=== PATIENT | male | born 1960 | race American Indian/Alaskan Native ===

== ENCOUNTER 2017-08-05 19:19 | Emergency (ER) | payer OTHER ==
[2017-08-05 19:41] VITALS: BP 126/87
[2017-08-05] MEDS ORDERED: TRIPLE ANTIBIOTIC TP ONE (20:57)
[2017-08-05] MEDS ORDERED: BOOSTRIX IM ONE (20:58)
--- NOTE | 2017-08-05 21:24 | Emergency Department Report ---
- General Chief Complaint: Wound/Laceration Stated Complaint: FALL/LEFT FACE LACERATION Time Seen by Provider: 08/05/17 20:35 Source: patient Mode of arrival: Ambulatory Limitations: No Limitations - History of Present Illness Initial Comments: 56-year-old male past medical history traumatic brain injury, arthritis, cholesterol, hypertension presents with complaint of laceration to left anterior forehead status post slip and fall in tub this evening. Patient states he slipped while coming out of shower hit his head on edge of tub and may have briefly lost consciousness. was present and states that she heard him fall and assisted him getting back up. As per patient's he was drinking alcohol this evening. Patient unaware of tetanus status. Visible one- inch laceration to left upper anterior forehead above left eye. Patient is awake alert and oriented cooperative and fully lucid. 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 Is ambulatory without assistance. -: This evening Location: scalp Place: home Patient Tetanus UTD: No Context: accidental Associated Symptoms: pain - Related Data Previous Rx's Medication Instructions Recorded Last Taken Type Acetaminophen [Acetaminophen TAB] 500 mg PO Q6HR PRN #30 tablet 08/05/17 Unknown Rx Bacitracin Zinc Oint [Antibiotic 1 applicatio TP TID #1 tube 08/05/17 Unknown Rx Oint] Allergies Allergy/AdvReac Type Severity Reaction Status Date / Time No Known Allergies Allergy Unverified 08/05/17 19:41 ED Review of Systems ROS: Stated complaint: FALL/LEFT FACE LACERATION Other details as noted in HPI Constitutional: denies: chills, fever Eyes: denies: eye pain, eye discharge, vision change ENT: denies: ear pain, throat pain Respiratory: denies: cough, shortness of breath, wheezing Cardiovascular: denies: chest pain, palpitations Endocrine: no symptoms reported Gastrointestinal: denies: abdominal pain, nausea, diarrhea Genitourinary: denies: urgency, dysuria Musculoskeletal: denies: back pain, joint swelling, arthralgia Skin: denies: rash, lesions Neurological: denies: headache, weakness, paresthesias Psychiatric: denies: anxiety, depression Hematological/Lymphatic: denies: easy bleeding, easy bruising ED Past Medical Hx - Past Medical History Hx Hypertension: Yes Hx Arthritis: Yes (chronic back pain) Additional medical history: TBI, high cholesterol - Social History Smoking Status: Current Every Day Smoker Substance Use Type: Alcohol - Medications Home Medications: Home Medications Medication Instructions Recorded Confirmed Last Taken Type Acetaminophen [Acetaminophen TAB] 500 mg PO Q6HR PRN #30 tablet 08/05/17 Unknown Rx Bacitracin Zinc Oint [Antibiotic 1 applicatio TP TID #1 tube 08/05/17 Unknown Rx Oint] ED Physical Exam - General Limitations: No Limitations General appearance: alert, in no apparent distress - Expanded Head Exam Expanded Head exam: Present: laceration (diagonal 2-3 cm laceration above the left eyebrow actively bleeding.) 1 - Laceration here - Eye Eye exam: Present: normal appearance, PERRL, EOMI - ENT ENT exam: Present: mucous membranes moist - Neck Neck exam: Present: normal inspection - Respiratory Respiratory exam: Present: normal lung sounds bilaterally. Absent: respiratory distress - Cardiovascular Cardiovascular Exam: Present: regular rate, normal rhythm. Absent: systolic murmur, diastolic murmur, rubs, gallop - GI/Abdominal GI/Abdominal exam: Present: soft, normal bowel sounds - Rectal Rectal exam: Present: deferred - Extremities Exam Extremities exam: Present: normal inspection - Back Exam Back exam: Present: normal inspection - Neurological Exam Neurological exam: Present: alert, oriented X3, CN II-XII intact, normal gait - Expanded Neurological Exam Expanded Patient oriented to: Present: person, place, time Cranial nerves: EOM's Intact: Normal, Facial Sensation: Normal Sensory exam: Upper Extremity Light Touch: Normal, Lower Extremity Light Touch: Normal Motor strength exam: RUE: 5, LUE: 5, RLE: 5, LLE: 5 Best Eye Response (Lianna): (4) open spontaneously Best Motor Response (Bells): (6) obeys commands Best Verbal Response (Lianna): (5) oriented Bells Total: 15 - Psychiatric Psychiatric exam: Present: normal affect, normal mood - Skin Skin exam: Present: warm, dry, intact, normal color. Absent: rash ED Course Vital Signs 08/05/17 19:34 Temperature 98.5 F Pulse Rate 88 Respiratory 18 Rate Blood Pressure 126/87 O2 Sat by Pulse 97 Oximetry - Laceration /Wound Repair Left Upper Face Wound Location: face Wound Length (cm): 3 Wound's Depth, Shape: superficial Irrigated w/ Saline (ccs): 200 Anesthesia: 1% Lidocaine Volume Anesthetic (ccs): 4 Wound Repaired With: sutures Suture Size/Type: 3:0, nylon Number of Sutures: 3 Layer Closure?: No Progress: Area infiltrated with lidocaine 1% without epinephrine. Good anesthesia achieved. Wound irrigated with 200 mL of saline flushes. 3 sutures placed with good closure achieved. Covered with triple antibiotic ointment and Band- Aid afterwards ED Medical Decision Making - Medical Decision Making A/P: Forehead laceration, minor head injury, possible concussion 1-laceration closed. Sutures to be removed in 7 days 2-as per patient and his he was drinking alcohol this evening before fall. NEXUS criteria +. CT head and C-spine show no acute trauma. Chronic degenerative changes and C-spine. Patient ambulatory strength 5/5 all extremities. Ambulatory upon discharge being driven home by his .. 3-tetanus updated today 4-Tylenol when necessary, triple antibiotic ointment 5-follow-up with primary care doctor. 6- patient given post concussion precautions, instructed to return to the ED for any confusion, lethargy, chest pain, shortness of breath, abdominal pain, inability to tolerate by mouth, paresthesias, inability to ambulate. Critical care attestation.: If time is entered above; I have spent that time in minutes in the direct care of this critically ill patient, excluding procedure time. ED Disposition Clinical Impression: Forehead laceration Qualifiers: Encounter type: initial encounter Qualified Code(s): S01.81XA - Laceration without foreign body of other part of head, initial encounter Minor head injury Qualifiers: Encounter type: initial encounter Qualified Code(s): S00.90XA - Unspecified superficial injury of unspecified part of head, initial encounter Disposition: TO HOME OR SELFCARE Is pt being admited?: No Does the pt Need Aspirin: No Condition: Stable Instructions: Suture Care (ED), Laceration (ED), Minor Head Injury (ED), Post Concussion Syndrome (ED) Additional Instructions: Follow-up with primary care doctor within the next week. Sutures to be removed in 7 days. Prescriptions: Acetaminophen [Acetaminophen TAB] 500 mg PO Q6HR PRN #30 tablet PRN Reason: Pain Bacitracin Zinc Oint [Antibiotic Oint] 1 applicatio TP TID #1 tube Referrals: MARTÍN ROBERTS JR, MD [Staff Physician] - 3-[address] [facility] [Outside] - 3-5 Days Forms: Accompanied Note Time of Disposition: 22:07
--- NOTE | 2017-08-05 21:37 | Cat Scan Report ---
FINAL REPORT EXAM: CT HEAD/BRAIN WO CON HISTORY: s/p fall, + etoh, head lac COMPARISON: None available. TECHNIQUE: Axial images obtained skull base through vertex. FINDINGS: No acute intracranial hemorrhage, midline shift or pathologic extra axial fluid collection. Age related volume loss with compensatory dilatation of the ventricular system and chronic small vessel ischemic disease. Otherwise, kothari-white differentiation preserved. Calvarium grossly intact. Soft tissue swelling along the left frontal calvarium. Orbits are grossly unremarkable. Mild mucosal thickening the visualized paranasal sinuses. Mastoid air cells are clear. IMPRESSION: No grossly acute intracranial abnormality. Soft tissue swelling along the left frontal calvarium. No calvarial fracture. Mild age related volume loss and chronic small vessel ischemic disease.
--- NOTE | 2017-08-05 21:38 | Cat Scan Report ---
FINAL REPORT EXAM: CT CERVICAL SPINE WO CON HISTORY: s/p fall, +etoh COMPARISON: None available. TECHNIQUE: Axial images obtained through the cervical spine. Additional sagittal and coronal reformatted images were obtained. FINDINGS: Straightening of normal lordotic curvature of the cervical spine. Cervical vertebral body heights are preserved. No acute fracture or traumatic subluxation. Odontoid process, articular pillars and occipital condyles are intact. Moderate loss of disc height C3-C4, C5-C6 and C6-C7 levels. Moderate to severe foraminal narrowing at those levels due to uncovertebral hypertrophy and facet changes. Mild to moderate canal stenosis at those levels due to endplate osteophyte broad-based disc bulges. Mild canal stenosis and foraminal narrowing C4-C5 level. Prominent calcification of carotid bifurcations. Emphysematous changes at the lung apices. IMPRESSION: No acute fracture or subluxation of the cervical spine. Moderate degenerative changes. There is straightening of the normal lordotic curvature which may relate to patient positioning or muscle spasm.
[2017-08-05] MEDS ORDERED: TYLENOL PO ONE (22:08)
== END 2017-08-05 22:29 | disposition home or self-care (01) ==
LOC: ED 19:19
DX: S01.81XA Laceration without foreign body of other part of head, initial encounter (principal); S00.90XA Unspecified superficial injury of unspecified part of head, initial encounter; I10 Essential (primary) hypertension; M19.90 Unspecified osteoarthritis, unspecified site; G89.29 Other chronic pain; E78.5 Hyperlipidemia, unspecified; F17.200 Nicotine dependence, unspecified, uncomplicated; W01.198A Fall on same level from slipping, tripping and stumbling with subsequent striking against other object, initial encounter; Y93.89 Activity, other specified; Y99.8 Other external cause status; Y92.098 Other place in other non-institutional residence as the place of occurrence of the external cause
CPT/HCPCS: 70450; 72125; 90471; 90715; A6250

== ENCOUNTER 2017-12-29 19:14 | Emergency (ER) | payer OTHER ==
[2017-12-29 19:30] VITALS: BP 131/92
[2017-12-29 19:50] LABS: Basophils # (Auto) 0.1 K/mm3 (0.0-0.1); Basophils % (Auto) 0.9 % (0.0-1.8); Eosinophils # (Auto) 0.1 K/mm3 (0.0-0.4); Eosinophils % (Auto) 1.3 % (0.0-4.3); Hematocrit 41.5 % (35.5-45.6); Hemoglobin 13.8 gm/dl (11.8-15.2); Lymphocytes # (Auto) 1.9 K/mm3 (1.2-5.4); Lymphocytes % (Auto) 29.3 % (13.4-35.0); Mean Corpuscular HGB Conc 33 % (32-34); Mean Corpuscular Hemoglobin 29 pg (28-32); Mean Corpuscular Volume 85 fl (84-94); Monocytes # (Auto) 0.8 K/mm3 (0.0-0.8); Monocytes % (Auto) 13.4 % (0.0-7.3); Red Blood Count 4.86 M/mm3 (3.65-5.03); Red Cell Distribution Width 14.6 % (13.2-15.2)
[2017-12-29 20:02] LABS: Alanine Aminotransferase 57 units/L (7-56); BUN/Creatinine Ratio 16; Blood Urea Nitrogen 8 mg/dL (9-20); Calcium 9.2 mg/dL (8.4-10.2); Hemolysis Index 9; Platelet Count 204 K/mm3 (140-440)
[2017-12-29 20:10] LABS: Bilirubin,Urine NEG (Negative); Blood,Urine SM (Negative); Color,Urine Yellow (Yellow); Hyaline Casts,Urine 4 /LPF; Mucus,Urine FEW /HPF
[2017-12-29 20:29] LABS: Lipase 1508 units/L (13-60)
== END 2017-12-29 19:42 | disposition left against medical advice (07) ==
LOC: ED 19:14
DX: R10.9 Unspecified abdominal pain (principal); Z53.21 Procedure and treatment not carried out due to patient leaving prior to being seen by health care provider
CPT/HCPCS: 36415; 80053; 81001; 83690; 85025